=== PATIENT | male | born 1975 | race African-American/Black ===

== ENCOUNTER 2017-07-02 19:17 | Emergency (ER) | payer OTHER ==
[~2017-07-02] VITALS: Ht 172.7 cm; Wt 75.0 kg
[2017-07-02 19:40] VITALS: Ht 172.7 cm; Wt 75.0 kg
[2017-07-02] MEDS ORDERED: SOD CHLORIDE 0.9% 1,000 ML IV STA (19:58)
[2017-07-02] MEDS ORDERED: DIPHENHYDRAMINE 50 MG INJ IV ONE (20:00)
[2017-07-02] MEDS ORDERED: FAMOTIDINE 20 MG INJ IV ONE (20:00)
[2017-07-02] MEDS ORDERED: METHYLPREDNISOLONE 125 MG INJ IV ONE (20:00)
--- NOTE | 2017-07-02 20:41 | RADRPT ---
PROCEDURE: XR Chest. CLINICAL INDICATION: Abdominal Pain TECHNIQUE: Single frontal view of the chest was obtained COMPARISON: None FINDINGS: The heart and mediastinum are within normal limits. There is mild patchy bibasilar atelectasis. The lungs are otherwise clear. There is no pleural effusion or pneumothorax. The bones and soft tissue show no acute change. IMPRESSION: Mild patchy bibasilar atelectasis. Otherwise, no significant abnormalities are identified. RPTAT:AAJJ Physician Bear Date Time Electronically viewed and signed by Stevenson Harkins Physician on 07/02/2017 20:41 /
[2017-07-02] MEDS ORDERED: LEVE750T70 PO (20:49)
[2017-07-02] MEDS ORDERED: CLON2TAB3 PO (20:49)
[2017-07-02] MEDS ORDERED: ACET1TAB40 PO (20:50)
[2017-07-02] MEDS ORDERED: LORA1TAB PO (20:50)
[2017-07-02 20:54] LABS: ABNORMAL IP MESSAGE 1; BASOPHILS % 0.1 % (0.0-2.0); HEMATOCRIT 38.8 % (42.0-52.0); HEMOGLOBIN 12.2 g/dl (14.0-18.0); LYMPHOCYTES # 1.6 10^3/ul (0.8-2.9); LYMPHOCYTES % 13.9 % (15.0-51.0); MEAN CORPUSCULAR HEMOGLOBIN 23.9 pg (29.0-33.0); MEAN CORPUSCULAR HGB CONC 31.4 g/dl (32.0-37.0); MEAN CORPUSCULAR VOLUME 76.1 fl (82.0-101.0); MEAN PLATELET VOLUME 9.9 fl (7.4-10.4); MONOCYTE # 0.5 10^3/ul (0.3-0.9); MONOCYTES % 4.2 % (0.0-11.0); NEUTROPHIL # 9.2 10^3/ul (1.6-7.5); NEUTROPHILS % 81.4 % (39.0-77.0); PLATELET COUNT 296 10^3/UL (140-415); POSITIVE DIFF @See below; RED CELL DISTRIBUTION WIDTH 23.3 % (11.5-14.5); WHITE BLOOD COUNT 11.3 10^3/ul (4.8-10.8)
[2017-07-02 21:10] LABS: ADD UMIC NO; UR ASCORBIC ACID NEGATIVE (NEGATIVE); UR BILIRUBIN (Dip) NEGATIVE (NEGATIVE); UR BLOOD (Dip) NEGATIVE (NEGATIVE); UR CLARITY CLEAR (CLEAR); UR COLOR COLORLESS (YELLOW); UR GLUCOSE (Dip) NEGATIVE (NEGATIVE); UR KETONES (Dip) NEGATIVE (NEGATIVE); UR LEUKOCYTE ESTERASE (Dip) NEGATIVE Leu/ul (NEGATIVE); UR NITRITE (Dip) NEGATIVE (NEGATIVE); UR SPECIFIC GRAVITY (Dip) 1.002 (1.003-1.030); UR TOTAL PROTEIN (Dip) NEGATIVE (NEGATIVE); UR UROBILINOGEN (Dip) NEGATIVE (NEGATIVE)
[2017-07-02 21:19] LABS: ALBUMIN 4.7 g/dl (3.3-4.9); ALBUMIN/GLOBULIN RATIO 1.34; CALCIUM 10.4 mg/dl (8.4-10.2); CREATININE 0.87 mg/dl (0.61-1.24); POTASSIUM 3.7 mmol/L (3.5-5.1); TOTAL PROTEIN 8.2 g/dl (6.1-8.1)
[2017-07-02 21:41] LABS: BARBITURATES NEGATIVE (NEGATIVE); BENZODIAZEPINES POSITIVE (NEGATIVE); CANNABINOIDS NEGATIVE (NEGATIVE); COCAINE NEGATIVE (NEGATIVE); OPIATES POSITIVE (NEGATIVE)
[2017-07-02 21:57] VITALS: BP 135/82; PULSE 89; RESP 19; TEMP 98.5
--- NOTE | 2017-07-02 22:08 | ERD ---
ER Documentation Chief Complaint Date/Time DATE: 07/02/17 TIME: 19:50 Chief Complaint BIB RA 100 FOR ALLERGIC REACTION / SOB GIVEN ALBUTERAL BREATHING TX HPI 41-year-old male history of seizures,alcohol abuse and pancreatitis presents to the ED by rescue ambulance complaining of pruritic rash and shortness of breath after taking Tylenol with codeine. Chronic, mild, epigastric abdominal pain no nausea, vomiting, diarrhea or constipation. No hematemesis, hematochezia or melanotic stools. Denies chest pain or palpitations. No lip or tongue swelling. No fevers or chills. ROS All systems reviewed and are negative except as per history of present illness. Medications Home Meds Active Scripts Diphenhydramine Hcl* (Benadryl*) 50 Mg Cap, 50 MG PO Q6H Y for ITCHING/RASH, # 12 CAP Prov:BLAISE LOIVAREZ MD 07/02/17 Reported Medications Lorazepam* (Lorazepam*) 1 Mg Tablet, 1 MG PO PRN Y for ANXIETY, #30 TAB 07/02/17 Acetaminophen with Codeine (Acetaminophen-Cod #3 Tablet) 1 Each Tablet, 2 TAB PO as needed, #20 TAB 07/02/17 Clonazepam* (Clonazepam*) 2 Mg Tablet, 2 MG PO BID, TAB 07/02/17 Levetiracetam* (Keppra*) 750 Mg Tablet, 750 MG PO BID, TAB 07/02/17 Allergies Allergies: Coded Allergies: ibuprofen (Unverified Allergy, Unknown, 07/02/17) ketorolac (Unverified Allergy, Unknown, 07/02/17) PMhx/Soc Reviewed in chart. As per HPI Medical and Surgical Hx: pt denies Medical Hx History of Surgery: No Anesthesia Reaction: No Hx Neurological Disorder: Yes (HX OF SEIZURES ) Hx Respiratory Disorders: Yes Hx Cardiac Disorders: No Hx Psychiatric Problems: No Hx Miscellaneous Medical Probl: No Hx Alcohol Use: Yes Hx Substance Use: Yes Hx Tobacco Use: Yes Smoking Status: Never smoker FmHx No diabetes, asthma or stroke Physical Exam Vitals Vital Signs Date Time Temp Pulse Resp B/P Pulse Ox O2 Delivery O2 Flow Rate FiO2 07/02/17 21:57 98.5 89 19 135/82 99 Room Air 07/02/17 19:40 98.5 118 18 141/81 99 Physical Exam Const: Alert, anxious, moderate distress Head: Atraumatic Eyes: Normal Conjunctiva ENT: Normal External Ears, Nose and Mouth. No lip, tongue or uvular swelling. Neck: Full range of motion.No stridor. Resp: Breath sounds are equal and clear to auscultation bilaterally. No rhonchi or wheezes. Cardio: Regular rate and rhythm, no murmurs Abd: Soft,Mild epigastric tenderness, no distention. No rebound or guarding. Bowel sounds are present. Skin: Mild, diffuse, maculopapular rash. Back: No midline or flank tenderness Ext: No cyanosis, or edema Neur: Awake and alert Psych: Normal Mood and Affect Result Diagram: 07/02/17204007/02/172040 Results 24 hrs Laboratory Tests Test 07/02/17 20:41 07/02/17 20:49 White Blood Count 11.310^3/ul Red Blood Count 5.1010^6/ul Hemoglobin 12.2g/dl Hematocrit 38.8% Mean Corpuscular Volume 76.1fl Mean Corpuscular Hemoglobin 23.9pg Mean Corpuscular Hemoglobin Concent 31.4g/dl Red Cell Distribution Width 23.3% Platelet Count 07609^3/UL Mean Platelet Volume 9.9fl Neutrophils % 81.4% Lymphocytes % 13.9% Monocytes % 4.2% Eosinophils % 0.0% Basophils % 0.1% Nucleated Red Blood Cells % 0.0/100WBC Neutrophils # 9.210^3/ul Lymphocytes # 1.610^3/ul Monocytes # 0.510^3/ul Eosinophils # 0.010^3/ul Basophils # 0.010^3/ul Nucleated Red Blood Cells # 0.010^3/ul Sodium Level 146mmol/L Potassium Level 3.7mmol/L Chloride Level 110mmol/L Carbon Dioxide Level 20mmol/L Anion Gap 20 Blood Urea Nitrogen 8mg/dl Creatinine 0.87mg/dl Glucose Level 100mg/dl Calcium Level 10.4mg/dl Total Bilirubin 0.0mg/dl Direct Bilirubin 0.00mg/dl Indirect Bilirubin 0.0mg/dl Aspartate Amino Transf (AST/SGOT) 21IU/L Alanine Aminotransferase (ALT/SGPT) 27IU/L Alkaline Phosphatase 71IU/L Total Protein 8.2g/dl Albumin 4.7g/dl Globulin 3.50g/dl Albumin/Globulin Ratio 1.34 Lipase 93U/L Ethyl Alcohol Level 235.0mg/dl Urine Color COLORLESS Urine Clarity CLEAR Urine pH 6.0 Urine Specific [place] 1.002 Urine Ketones NEGATIVEmg/dL Urine Nitrite NEGATIVEmg/dL Urine Bilirubin NEGATIVEmg/dL Urine Urobilinogen NEGATIVEmg/dL Urine Leukocyte Esterase NEGATIVELeu/ul Urine Hemoglobin NEGATIVEmg/dL Urine Glucose NEGATIVEmg/dL Urine Total Protein NEGATIVEmg/dl Urine Opiates Screen POSITIVE Urine Barbiturates NEGATIVE Urine Amphetamines Screen NEGATIVE Urine Benzodiazepines Screen POSITIVE Urine Cocaine Screen NEGATIVE Urine Cannabinoids NEGATIVE Current Medications Medications (Trade) Dose Ordered Sig/Janell Route PRN Reason Start Time Stop Time Status Last Admin Dose Admin Sodium Chloride (NS) 1,000 ml @ 1,000 mls/hr Q1H STAT IV 07/02/17 19:58 07/02/17 20:57 DC 07/02/17 20:47 Diphenhydramine HCl (Benadryl) 50 mg ONCE ONCE IV 07/02/17 20:00 07/02/17 20:03 DC 07/02/17 20:47 Methylprednisolone Sodium Succinate (Solu-Medrol) 125 mg ONCE ONCE IV 07/02/17 20:00 07/02/17 20:03 DC 07/02/17 20:47 Famotidine (Pepcid Iv) 20 mg ONCE ONCE IV 07/02/17 20:00 07/02/17 20:03 DC 07/02/17 20:47 Procedures/MDM DOCUMENTS REVIEWED: ED nurse, no prior records available REEXAMINATION/REEVALUATION: Time: 21:55. Doing well. Lungs are clear. No rash or pruritus. Abdomen soft nontender. Wants to go home. MEDICAL DECISION MAKIN-year-old male history of seizures, alcohol abuse and pancreatitis presents to the ED by rescue ambulance complaining of pruritic rash and shortness of breath after taking Tylenol with codeine. Patient received nebulized albuterol prior to arrival with resolution of his dyspnea. Symptoms and rash resolved with IV hydration, H1/H2 antagonist and Solu-Medrol. Abdominal exam is benign with no significant tenderness, rebound, guarding or signs of peritonitis. Lipase is normal. Possible allergic drug reaction although the patient says he has taken Tylenol with codeine frequently. No angioedema or respiratory compromise. Stable for discharge of precautionary instructions, antihistamines and outpatient follow-up as counseled. Alcohol cessation counseling provided. Counseled patient regarding diagnostic workup, diagnosis and need for followup. Understands to return to ED if symptoms recur, worsen or any other concerns. Departure Diagnosis: Primary Impression: Allergic reaction Encounter type: initial encounter Qualified Code: T78.40XA - Allergic reaction, initial encounter Additional Impressions: Chronic alcohol abuse Alcohol intoxication Complication of substance-induced condition: uncomplicated Qualified Code: F10.920 - Alcoholic intoxication without complication Condition: Stable (Improved) BLAISE OLIVAREZ MD Jul 02, 2017 22:08
[2017-07-02] MEDS ORDERED: BEN50 PO (22:10)
== END 2017-07-02 22:44 | disposition home or self-care (01) ==
LOC: E/R 19:17
DX: R21 Rash and other nonspecific skin eruption (principal); R06.02 Shortness of breath; T39.1X5A Adverse effect of 4-Aminophenol derivatives, initial encounter; T40.2X5A Adverse effect of other opioids, initial encounter; F10.120 Alcohol abuse with intoxication, uncomplicated
CPT/HCPCS: 71010; 80053; 80306; 80307; 81003; 83690; 85025; 96374; 96375; J1200; J2930; J7030; Z7502; Z7610

== ENCOUNTER 2017-12-19 19:23 | Emergency (ER) | END 2017-12-19 20:05 | disposition home or self-care (01) ==